=== PATIENT | female | born 1990 | race African-American/Black ===

== ENCOUNTER 2017-12-27 10:44 | Emergency (ER) | payer MEDICAID ==
[~2017-12-27] VITALS: Ht 162.6 cm; Wt 62.0 kg
[2017-12-27] MEDS ORDERED: KETOROLAC 60MG/2ML VIAL IM STA (11:17)
[2017-12-27 11:45] LABS: BASOPHILS % 0.3 % (0.0-2.0); EOSINOPHILS % 0.3 % (0.0-5.0); HEMATOCRIT. 36.6 % (36.0-48.0); HEMOGLOBIN. 11.6 g/dL (12.0-16.0); LYMPHOCYTES % 14.1 % (20.0-50.0); MEAN CORPUSCULAR HEMOGLOBIN 20.9 pg (28.0-32.0); MEAN CORPUSCULAR VOLUME 66.2 fL (81.0-99.0); MEAN PLATELET VOLUME 7.6 fl (7.4-10.4); MONOCYTES % 7.1 % (2.0-8.0); NEUTROPHILS % 78.2 % (40.0-76.0); PLATELET 405 x1000/uL (130-400); RED BLOOD CELL COUNT 5.52 mill/uL (4.2-5.4); RED CELL DISTRIBUTION WIDTH 15.4 % (11.6-14.6)
[2017-12-27 11:53] LABS: CHLORIDE 103 mEq/L (98-107)
[2017-12-27 12:06] LABS: HCG SCREEN NEGATIVE; PLATELET ESTIMATE SLIGHTLY INCREASED
[2017-12-27 13:16] LABS: CLARITY URINE CLOUDY (CLEAR); COLOR URINE YELLOW (YELLOW); KETONES URINE TRACE (NEGATIVE); LEUKOCYTE ESTERASE URINE TRACE (NEGATIVE); NITRITE URINE NEGATIVE (NEGATIVE); OCCULT BLOOD URINE NEGATIVE (NEGATIVE); PH URINE 7.5 (4.5-8.0); PROTEIN URINE NEGATIVE (NEGATIVE); SPECIFIC GRAVITY URINE 1.024 (1.005-1.030); UROBILINOGEN URINE 0.2 E.U./dL (0.2-1.0)
[2017-12-27 14:41] VITALS: BP 111/59
== END 2017-12-27 14:42 | disposition home or self-care (01) ==
LOC: ER 10:56
DX: N39.0 Urinary tract infection, site not specified (principal); F12.10 Cannabis abuse, uncomplicated
CPT/HCPCS: 36415; 72100; 80053; 81003; 84703; 85025; 96372; 99285; J1885

== ENCOUNTER 2018-02-27 15:23 | Emergency (ER) | payer MEDICAID | END 2018-02-27 17:09 | disposition left against medical advice (07) | LOC: ER 16:40 | DX: S09.90XA Unspecified injury of head, initial encounter (principal); Z53.21 Procedure and treatment not carried out due to patient leaving prior to being seen by health care provider; X58.XXXA Exposure to other specified factors, initial encounter; Y93.89 Activity, other specified; Y92.89 Other specified places as the place of occurrence of the external cause; Y99.8 Other external cause status ==